=== PATIENT | male | born 1990 | race Caucasian/White ===

== ENCOUNTER 2019-10-07 14:51 | Inpatient (IN) ==
[2019-10-07 16:46] LABS: RBC 4.31 XMIL (4.7-6.1); WBC 4.81 X1000 (4.8-10.8)
[2019-10-07 16:47] LABS: HEMATOCRIT 37.5 % (42.0-52.0); HEMOGLOBIN 12.8 g/dL (14.0-18.0); MCH 29.7 PG (27-31); MCHC 34.1 g/dL (33-37); MPV 10.7 FL (7.4-10.4); PLT 173 X1000 (130-400)
[2019-10-07 16:48] LABS: BASO# 0.05 X1000 (0.0-0.2); EOS# 0.05 X1000 (0.0-0.7); LYMPH# 2.25 X1000 (1.2-3.4); LYMPH% 46.8 % (20.5-51.1); MONO# 0.74 X1000 (0.11-0.59); MONO% 15.4 % (1.7-9.3); NEUT# 1.72 X1000 (1.4-6.5); NEUT% 35.8 % (42.2-75.2)
[2019-10-07 17:20] LABS: URINE SOURCE CLEAN CATCH
[2019-10-07 17:30] LABS: BLOOD URINE NEGATIVE (NEGATIVE); COLOR YELLOW; GLUCOSE URINE NEGATIVE (NEGATIVE); KETONE URINE NEGATIVE (NEGATIVE); LEUKOCYTES URINE NEGATIVE (NEGATIVE); NITRITE URINE NEGATIVE (NEGATIVE); PH URINE 6.5; PROTEIN URINE TRACE mg/dL (NEGATIVE); SP GRAVITY URINE 1.028; TURBIDITY URINE HAZY (CLEAR); UROBILINOGEN URINE 8 mg/dL (NORMAL)
[2019-10-07 17:35] LABS: AGAP 16; ALB/GLOB RATIO 1.2; ALBUMIN 2.9 g/dL (3.5-5.0); ALKALINE PHOSPHATASE 257 U/L (32-122); AMYLASE 27 U/L (20-200); BUN 8 mg/dL (8-22); CALCIUM 8.6 mg/dL (8.8-10.2); CHLORIDE 97 mmol/L (98-107); CK PROFILE 83 U/L (24-204); COSMO 278; CREATININE 0.7 mg/dL (0.7-1.2); GLUCOSE 142 mg/dL (70-104); GOT 442 U/L (10-34); GPT 1422 U/L (10-44); LIPASE 22 U/L (13-60); POTASSIUM 3.5 mmol/L (3.5-5.1); SODIUM 139 mmol/L (136-145); TCO2 26 mmol/L (25-35); TOTAL BILIRUBIN 10.86 mg/dL (0.20-1.00); TOTAL PROTEIN 5.3 g/dL (6.3-8.3)
[2019-10-07 17:45] LABS: UR AMPHETAMINES QUAL PRESUMPTIVE POSITIVE (NONE DETECT); UR BARBITUATES QUAL NONE DETECTED (NONE DETECT); UR BENZODIAZEPIN QUAL NONE DETECTED (NONE DETECT); UR CANNABINOIDS QUAL PRESUMPTIVE POSITIVE (NONE DETECT); UR COCAINE QUAL NONE DETECTED (NONE DETECT); UR METHADONE QUAL NONE DETECTED (NONE DETECT); UR OPIATES QUAL NONE DETECTED (NONE DETECT); UR OXYCODONE QUAL NONE DETECTED (NONE DETECT); UR PCP QUAL NONE DETECTED (NONE DETECT)
[2019-10-07 17:49] LABS: UR EPITHELIAL CELLS <10 /HPF (<10); URINE BACTERIA NEGATIVE /HPF; URINE RBC <10 /HPF (<10); URINE WBC <10 /HPF (<10)
[2019-10-07 17:51] LABS: BILIRUBIN URINE LARGE (NEGATIVE)
[2019-10-07 17:53] LABS: URINE CASTS NONE SEEN; URINE YEAST NONE SEEN
[2019-10-07 17:56] LABS: URINE CRYSTALS NONE SEEN
--- NOTE | 2019-10-07 18:05 | PROVIDER DOCUMENTATION ---
This chart was entered by Andrew Stringer Scribe, acting as scribe for Magalis Almeida MD. HPI-General Adult - General Chief Complaint: General Adult Stated Complaint: General Adult Time Seen by Provider: 10/07/19 15:15 Source: patient Allergies/Adverse Reactions: Patient Allergies Allergy/AdvReac Type Severity Reaction Status Date / Time No Known Allergies Allergy Verified 10/07/19 15:12 Home Medications: Home Medication List Medication Instructions Recorded Confirmed Last Taken Type Fluoxetine HCl [Prozac] 80 mg PO DAILY 10/07/19 10/07/19 Unknown History - History of Present Illness -Gen Adult Nature of Presenting Problems: 28 y/o M presents to the ED with multiple complaints. Patient reports jaundiced skin and eyes for "a few days". Patient reports RUQ abdominal pain, body aches, generalized weaknes and headache. Patient denies nausea, vomiting, diarrhea and all other symptoms. Location of Pain/Injury: reports: abdomen Pain Radiation: reports: no radiation Quality of Pain: reports: aching Severity: reports: mild Onset/Duration: reports: 3 days ago Timing: reports: still present Context/Activities at Onset: reports: none Modifying Factors: improves with: nothing Associated Symptoms: reports: fatigue, headaches, muscle aches, weakness. denies: diarrhea, fever/chills, loss of appetite, nausea, shortness of breath, vomiting Similar Symptoms Previously?: No Recently seen or treated by another doctor?: No Review of Systems - Adult - REVIEW OF SYSTEMS - ADULT Constitutional: reports: fatique. denies: chills, fever Eyes: denies: blurred vision, double vision Ears, Nose, Mouth & Throat: reports: no symptoms reported Cardiovascular: denies: chest pain, palpitations Respiratory: reports: no symptoms reported Gastrointestinal: reports: abdominal pain. denies: diarrhea, nausea, vomiting Genitourinary: reports: other (dark colored urine). denies: flank pain Musculoskeletal: reports: no symptoms reported Integumentary: reports: no symptoms reported Neurological: reports: other (generalized weakness). denies: dizziness/vertigo, headache/migraines, numbness Psychiatric: reports: no symptoms reported Endocrine: reports: no symptoms reported Hematologic/Lymphatic: reports: no symptoms reported Allergic/Immunologic: reports: no symptoms reported All Other Systems: Reviewed and Negative Past History - Adult - PAST MEDICAL HISTORY-ADULT Review of Records: reports: Nursing Assessment Review, Medications Reviewed Major Childhood Illnesses: reports: denies history Cardiovascular: reports: denies history Respiratory: reports: denies history Gastrointestinal: reports: denies history Obstetrical/Gynecological: reports: denies history Genitourinary: reports: denies history Musculoskeletal: reports: denies history Neurological: reports: denies history Psychiatric: reports: denies history Endocrine/Immune: reports: denies history Other Conditions: reports: denies history - PRIOR SURGERIES/PROCEDURES Surgical/Procedure History: reports: appendectomy, tonsillectomy - PRIOR HOSPITALIZATIONS Prior Hospitalizations: reports: for other non-related - IMMUNIZATION STATUS Childhood Immunizations: See Nurse Assessment Flu Vaccine: See Nurse Assessment - FAMILY HISTORY Family History: reviewed, not pertinent - SOCIAL HISTORY Smoking: cigarettes, greater than 1 pack/day Provider spent 3-5 mins advising pt. on dangers of tobacco.: Discussed manners to quit use, and f/u contacts for add'l counseling. Substance Use: marijuana Physical Exam-General - PHYSICAL EXAM-ADULT Initial Vital Signs Reviewed: Yes - CONSTITUTIONAL General Appearance: alert, no apparent distress, other (jaundice looking) - EYES Eyes: PERRL/EOMI - HEAD, EARS, NOSE, MOUTH & THROAT HENMT: moist mucous membranes, normal ENT inspection - NECK Neck: full range of motion, normal inspection - RESPIRATORY Respiratory: lungs clear, normal breath sounds, no respiratory distress, no accessory muscle use - CARDIOVASCULAR Cardiovascular: normal peripheral pulses, regular rate, rhythm - GASTROINTESTINAL (ABDOMEN) Abdominal Exam: non tender, soft - MUSCULOSKELETAL Back Exam: normal inspection Extremity: normal range of motion, normal capillary refill - SKIN Integumentary: normal color, warm/dry - NEUROLOGIC Neurologic: pastry finisher II-XII nml as tested, grossly normal, no motor/sensory deficits - PSYCHIATRIC Psych/Mental Status: normal mood/affect, normal thought content, normal thought process, oriented x 3 Progress - PLAN OF CARE/RESULTS Progress/Plan/Lab Results: Vital Signs - 8 hr 10/07/19 14:54 Temperature 99 F Pulse Rate 89 Respiratory Rate 19 Blood Pressure 124/85 O2 Sat by Pulse Oximetry 100 Result Diagrams: 10/07/19 15:58 10/07/19 15:58 - CONSULTS/PCP/HOSPITALIST Notification #1 *Consult/PCP/Hospitalist*: Dori DECISION SCIENCE ANALYST, [facility] Time Discussed: 18:05 Consult Disposition: Admit (Admit to Dr Finn) #2 Consult: Dr Molina Time Discussed: 19:47 Consult Disposition: Admit Departure - Departure Date of Disposition Decision: 10/07/19 Time of Disposition Decision: 18:04 DIAGNOSIS: Acute hepatitis, Hyperbilirubinemia Disposition: ADMITTED INPATIENT 09 Certified Medical Emergency: Emergent Condition: Serious Referrals and Follow-Ups: Roberto Carlos Salas [Primary Care Provider] - Discharge Education: Steps to Quit Smoking - Critical Care Note This patient required my direct & personal management of CC.: No Attestation - Physician/ MILE Attestation Patient care was provided by Advanced Practice Provider:: No The physician spent face to face time with patient:: Yes Advanced Practice Provider documentation review:: Supervising physician onsite and consulted in the evaluation and care of this patient. The physician did have a face to face encounter with the patient. This chart was documented by the indicated scribe, (Andrew Stringer Scribiron) and accurately reflects the services I performed and decisions made by , Magalis Almeida MD, as attested by the provider's signature.
[2019-10-07] MEDS ORDERED: MORPHINE IV ONE (19:22)
[2019-10-07] MEDS ORDERED: ZOFRAN IV ONE (19:22)
--- NOTE | 2019-10-07 19:40 | Diag Imaging Result Doc PS360 ---
EXAM: CT ABDOMEN/PELVIS W/O CONTRAST INDICATION: hepatitis TECHNIQUE: This exam was performed using automated exposure control, adjustment of mA or kV according to patient size, and/or use of iterative reconstruction technique. COMPARISON: 04/21/2019 FINDINGS: The gallbladder is contracted and is unremarkable, otherwise. The liver appears normal as imaged with unenhanced CT. The spleen, pancreas, and adrenal glands are unremarkable. There are a few nonobstructing intrarenal stones bilaterally. No ureteral stones are identified and there is no hydronephrosis. There are several phleboliths in the pelvis. The urinary bladder is unremarkable. There are metallic clips adjacent to the cecum suggesting likely prior appendectomy. There is no pericecal inflammatory change. No definite bowel wall thickening or bowel obstruction is identified. The remainder of the GI tract is grossly unremarkable. No focal inflammatory changes, free abdominal gas, or free fluid is appreciated. IMPRESSION: 1.Nonobstructive nephrolithiasis. 2.Unremarkable liver by unenhanced CT. Electronically signed by Edmond Hale 10/07/2019 7:38 PM
[2019-10-07] MEDS ORDERED: OXY IR PO ONE (21:40)
[2019-10-07 21:53] LABS: INR 0.85; PROTIME 11.7 Seconds (11.0-16.0)
[2019-10-07 22:04] LABS: GGT 318 U/L (11-50); MAGNESIUM 2.1 mg/dL (1.5-2.7)
[2019-10-07 22:23] LABS: SALICYLATES < 3.00 mg/dL (3-10)
[2019-10-07] MEDS ORDERED: NS 1,000 ML IV SCH (23:30)
--- NOTE | 2019-10-08 00:47 | EKG Report ---
Test Performed on : 10/07/2019 9:57:29 PM Test Reason : RUQ Pain Blood Pressure : / mmHG Vent. Rate : 057 BPM Atrial Rate : 057 BPM P-R Int : 160 ms QRS Dur : 084 ms QT Int : 440 ms P-R-T Axes : 064 046 040 degrees QTc Int : 428 ms Sinus bradycardia. Otherwise normal ECG When compared with ECG of 16-MAR-2019 23:03, No significant change was found Unconfirmed Result
[2019-10-08] MEDS: NICODERM PATCH TD PRN ×2 (00:53→20:51)
[2019-10-08] MEDS ORDERED: XANAX PO ONE (01:08)
[2019-10-08] MEDS: OXY IR PO PRN ×4 (03:21→21:08)
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
[2019-10-08 07:23] LABS: BASO# 0.02 X1000 (0.0-0.2); BASO% 0.4 % (0.0-0.8); EOS# 0.09 X1000 (0.0-0.7); EOS% 1.9 % (0.0-10.0); HEMATOCRIT 36.1 % (42.0-52.0); HEMOGLOBIN 12.5 g/dL (14.0-18.0); LYMPH# 2.61 X1000 (1.2-3.4); LYMPH% 54.6 % (20.5-51.1); MCH 30.4 PG (27-31); MCHC 34.6 g/dL (33-37); MCV 87.8 FL (81-99); MONO# 0.74 X1000 (0.11-0.59); MONO% 15.5 % (1.7-9.3); MPV 11.8 FL (7.4-10.4); NEUT# 1.32 X1000 (1.4-6.5); NEUT% 27.6 % (42.2-75.2); PLT 192 X1000 (130-400); RBC 4.11 XMIL (4.7-6.1); RDW 15.3 % (11.5-14.5); WBC 4.78 X1000 (4.8-10.8)
[2019-10-08] MEDS: ZOFRAN IV PRN ×2 (07:30→12:44)
--- NOTE | 2019-10-08 07:40 | Diag Imaging Result Doc PS360 ---
EXAM: CHEST-2 VIEWS 10/07/2019 HISTORY: Exertional Dyspnea, cough TECHNIQUE: PA and lateral chest COMMENT: There is no evidence of acute cardiac or pulmonary disease. Compared to 04/21/2019 there has been no significant change. IMPRESSION: No evidence of acute disease. Electronically signed by Schuyler Barker 10/08/2019 7:38 AM
[2019-10-08 08:12] LABS: CHLORIDE 97 mmol/L (98-107); FERRITIN 424 ng/mL (30-400); POTASSIUM 3.3 mmol/L (3.5-5.1); SODIUM 137 mmol/L (136-145); TCO2 32 mmol/L (25-35)
[2019-10-08 08:13] LABS: AGAP 8; ALB/GLOB RATIO 1.1; ALKALINE PHOSPHATASE 252 U/L (32-122); BUN 6 mg/dL (8-22); CALCIUM 8.9 mg/dL (8.8-10.2); COSMO 271; CREATININE 0.7 mg/dL (0.7-1.2); GLUCOSE 88 mg/dL (70-104); GOT 314 U/L (10-34); GPT 1199 U/L (10-44); TOTAL BILIRUBIN 8.91 mg/dL (0.20-1.00); TOTAL PROTEIN 5.8 g/dL (6.3-8.3)
[2019-10-08 09:41] LABS: IRON SATURATION 44 %; TIBC 291 ug/dL; TOTAL IRON 127 ug/dL (53-167); UNBOUND IRON 164 ug/dL (112-346)
--- NOTE | 2019-10-08 09:50 | Diag Imaging Result Doc PS360 ---
EXAM: US ABDOMEN-COMPLETE INDICATION: Transaminitis,Abd. Pain COMPARISON: 04/21/2019 FINDINGS: The gallbladder is contracted. The gallbladder wall is somewhat thickened measuring up to 3.8 mm. This is probably due to the contraction. No gallstones are identified. The common bile duct is normal in diameter. The liver is grossly unremarkable. Portal venous flow is hepatopetal. The visualized pancreas is unremarkable. The aorta and IVC are grossly unremarkable. The spleen is unremarkable. There are a couple of subcentimeter intrarenal stones associated with both kidneys. The kidneys are unremarkable, otherwise. There is no evidence of hydronephrosis. IMPRESSION: 1.Contracted gallbladder with a mildly thickened wall. This is probably, at least in part, due to the contraction. Please correlate clinically. 2.Nonobstructive nephrolithiasis. Electronically signed by Edmond Hale 10/08/2019 9:47 AM
[2019-10-08] MEDS ORDERED: FLU VACCINE IM ONE (10:35)
--- NOTE | 2019-10-08 14:09 | PROGRESS NOTE ---
DATE: 10/08/2019 SUBJECTIVE: Mr. Ulloa was admitted yesterday. He is a patient of Dr. Salas. A 28-year-old, past medical history of depression, anxiety. States the past 3 months he has been having intermittent right upper quadrant abdominal pain. Reports that nothing really predisposes the pain coming and it just comes about any time. Curling up in a position and pain medicines improve it. He states that it is a stabbing pain in nature, like someone had a toolmaker grade three around that area. Denies any nausea or vomiting. Denies any constipation or diarrhea, reporting that he has been having some rectal bleeding. Reports that it is bright red blood, has been increased in amount. Does have a history of hemorrhoids and he says that there is more than just a little bit of blood. It is clots and it is in the toilet he sees as well. States history of this in the past, was diagnosed with hemorrhoids. Tends to see the rectal bleeding come and that he had been stressed out and it usually comes with stress. He had a colonoscopy though he does not remember when this was performed, was performed somewhere in [place]. He was told that everything looked okay. He has had increased fatigue and exertional dyspnea. Reports a headache. He denies any dysuria. He reports some numbness in his fingers in the right hand at times that has been going on for some time and he might have been told he might have carpal tunnel. He feels like his hands stay cold a lot. In the emergency room, he has been in the emergency room quite a few times with the same type of pain. This goes back to 2013. He has had previous CT of the abdomen and pelvis as well as abdominal ultrasounds, though these all appear to be negative except for the CT today did show some nonobstructing infrarenal stones bilaterally. Patient denies any current alcohol use. States that he has had approximately 6 beers over the last 6 months. He has not had any previous reports of heavy alcohol use. He reports a lot of stressors in his life right now. He is working out of town and his father currently having to keep his kids secondary to this. He also is either still but or he is but does have the mother of his children for which he explained causes a lot of stress in the relationship. He does have a history of depression and anxiety. Evaluation in the emergency room, he seemed to have some jaundice noticed in his sclerae and slightly jaundiced skin. Serum ethanol level was 2. Performed a CT of the abdomen without contrast, showed unremarkable liver by unenhanced CT. There were a few nonobstructing intrarenal stones bilaterally. Gallbladder was noted to be contracted and was unremarkable. Spleen, pancreas, and adrenal glands were unremarkable. PAST MEDICAL HISTORY: 1. Depression. 2. Anxiety. 3. Hemorrhoids. 4. Rectal bleeding. 5. Nicotine dependence. 6. Chronic back pain. 7. Degenerative disk disease. 8. Reports chronic back pain due to herniated disk around S1-S2 and herniated disk in L1 to L5 area. PAST SURGICAL HISTORY: 1. Appendectomy. 2. Tonsillectomy. 3. Colonoscopy. ADMISSION DIAGNOSES: 1. Abdominal pain, transaminitis, and was admitted for further evaluation. CT scan did not show significant or any specific liver pathology. 2. Reported rectal bleeding which has been intermittent. He has been told he had hemorrhoids. Does report he has had a colonoscopy in the recent past. We are going to get GI to evaluate. 3. Nicotine dependence and counseled on the importance of smoking cessation. 4. Depression and anxiety. He is on Prozac daily. He is having a lot of stressors right now. 5. He is on deep venous thrombosis prophylaxis with sequential compression hose. HIS ORDERS REVIEWED: He is on a nicotine patch 21 mg a day, Oxy IR 5 mg q.4 hours p.r.n., Xanax 0.5 mg p.o. I guess was given a dose when he came in, and he does take Prozac at home and so we will continue that. cc: Artemio Kee MD
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
[2019-10-08 14:50] LABS: HEPATITIS PROFILE ACUTE SEE COMMENTS
[2019-10-08] MEDS: PROZAC PO SCH (16:09)
[2019-10-09] MEDS ORDERED: NS 1,000 ML IV SCH (01:30)
[2019-10-09] MEDS: OXY IR PO PRN ×4 (04:04→21:46)
[2019-10-09] MEDS ORDERED: PNEUMOVAX 23 IM ONE (05:58)
[2019-10-09] MEDS: PROZAC PO SCH (08:23)
[2019-10-09] MEDS: NICODERM PATCH TD PRN (08:27)
--- NOTE | 2019-10-09 08:46 | PROGRESS NOTE ---
DATE: 10/09/2019 SUBJECTIVE: Mr. Ulloa was sleeping and really was easy to arouse, but he really did not want to be bothered this morning, went back to sleep. His IV came out, and we are not giving him anything in the IV at this time. I think we will hold it out for now. OBJECTIVE: Vital Signs: Temp 98.4 degrees, pulse 57, respirations 16, blood pressure 102/65. HEENT: Pupils are equal and round. Neck: No distended neck veins. Lungs: Clear anterolateral. Cardiovascular: Regular rhythm and rate without murmur or S3. Abdomen: Soft. Skin: Warm and dry. Urine output was almost 700 mL. LABORATORY DATA: White count 4780, hematocrit 36, platelet count 192,000. AST was 314, ALT 1199. Direct bilirubin was 8.0; it is up to 8.9. ASSESSMENT AND PLAN: 1. Elevated liver function tests. 2. Abdominal pain, which seems to have resolved. 3. Tobacco abuse. 4. Drug abuse. 5. Depression. 6. Anxiety. 7. Rectal bleeding. 8. History of hemorrhoids. Gastroenterology is following. He is on antiemetics. They are having trouble getting an IV. I will hold off on an IV at this point, and see. The patient's stool for occult blood was negative. The patient's urine culture showed no growth. Transaminases, bilirubin slightly up, and his ALT and AST are a little bit down. cc: Artemio Kee MD
[2019-10-09] MEDS ORDERED: PROZAC PO SCH (09:00)
--- NOTE | 2019-10-09 12:40 | GASTROENTEROLOGY PROGRESS NOTE ---
DATE: 10/09/2019 SUBJECTIVE: Mr. Ulloa is a 28-year-old male, resting in bed. He was complaining that he was feeling depressed because he was in the hospital and that the holidays are coming and he wanted to be with his kids. He has denied any nausea, vomiting, or abdominal pain. He also has denied any bowel movements today. OBJECTIVE: Vital Signs: Temperature 98.4, pulse is 57, respirations 16, blood pressure 102/65, oxygen saturation 99% on room air. The patient's weight is 160 pounds. BMI is 23.0 kg/m2. General: He is alert, oriented x3. HEENT: Pale conjunctivae. Scleral icterus. PERRL. Neck: Supple. Lungs: Clear to auscultation. Cardiovascular: The patient is bradycardic. Abdomen: Soft, nontender, nondistended. Active bowel sounds heard in all 4 quadrants. Extremities: No clubbing, no cyanosis, no edema. Pedal pulses 2+ present bilaterally. Neurologic: Alert and oriented x3. LABORATORY DATA: From 10/08/2019, WBC 4.78, RBC 4.11, hemoglobin 12.5, hematocrit 36.1, platelet count is 192,000. Sodium 137, potassium 3.3, chloride 97, carbon dioxide 32, anion gap 8, BUN 6, creatinine 0.7, glucose 88, calcium 8.9, total bilirubin 8.91, AST is 314, ALT is 1199, and alkaline phosphatase is 252. The patient's hepatitis profile showed that his hepatitis B surface antigen was nonreactive. Hepatitis B core antigen was nonreactive. Hepatitis C antibody was nonreactive, but hepatitis A viral antibody was reactive. IMPRESSION AND PLAN: 1. Elevated liver enzymes 2. Abdominal pain. 3. Tobacco abuse. 4. Drug abuse. 5. Depression. 6. Anxiety. 7. Rectal bleeding. 8. History of hemorrhoids. 9. Acute Hepatitis A PLAN: Mr. Ulloa is a 28-year-old male with a history of depression and anxiety. GI has been following him for his abdominal pain. The patient is currently on antiemetic, Zofran, for his nausea and vomiting. His occult blood was negative. He has denied noticing any bleeding. Patient is receiving Prozac for his depression and anxiety. Patient's Hepatitis A IgM is reactive, we will continue to provide conservative care to the patient. This plan was discussed with Dr. Sy. Please call us for any further questions or concerns. Dictated by JACK Tran for Abimael Sy MD cc: Abimael Sy MD I have seen and examined the patient myself and I agree with the above plan of care. I have discussed the above with the patient and all questions were answered. Please call us with any further questions. MTDVazquez
[2019-10-09] MEDS ORDERED: IMITREX SUBQ SUBQ ONE (13:00)
[2019-10-10] MEDS: OXY IR PO PRN ×5 (02:28→22:13)
[2019-10-10] MEDS ORDERED: IMITREX SUBQ SUBQ ONE (08:05)
[2019-10-10] MEDS: PROZAC PO SCH (08:55)
--- NOTE | 2019-10-10 11:07 | GASTROENTEROLOGY PROGRESS NOTE ---
DATE: 10/10/2019 SUBJECTIVE: Mr. Ulloa is a 28-year-old male, resting in bed, complaining of having headaches. He has denied any nausea, vomiting, or abdominal pain. OBJECTIVE: Vital Signs: Temperature 98 degrees, pulse 60, respirations 16, blood pressure 112/78, oxygen saturation 97% on room air. The patient's weight is 160 pounds. BMI is 23.0 kg/m2. General: He is alert, oriented x3, and in no acute distress. HEENT: Pale conjunctivae. Sclerae icterus. PERRL. Neck: Supple. Lungs: Clear to auscultation. Cardiovascular: Regular rate and rhythm. Abdomen: Soft, nontender, nondistended. Active bowel sounds heard in all 4 quadrants. Extremities: No clubbing, no cyanosis, no edema. Pedal pulses 2+ present bilaterally. Neurologic: Alert oriented x3. LABORATORY: From 10/08, WBC is 4.78, RBCs 4.11, hemoglobin 12.5, hematocrit 36.1, platelet count is 192,000. Sodium 137, potassium 3.3, chloride 97, carbon dioxide 32, anion gap 8, BUN 6, creatinine 0.7, glucose 98, calcium 8.9, total bilirubin 8.91, AST 314, ALT 1199, alkaline phos 252, albumin is 3.0 IMPRESSION AND PLAN: 1. Elevated liver enzymes. 2. Abdominal pain. 3. Tobacco abuse. 4. Drug abuse. 5. Depression. 6. Anxiety. 7. Rectal bleeding. 8. History of hemorrhoids. 9. Acute hepatitis A. PLAN: Mr. Ulloa is a 28-year-old male with a history of depression and anxiety. GI has been following him for his abdominal pain and his elevated liver enzymes. The patient is currently receiving antiemetic, Zofran for his nausea and vomiting. The patient did have an occult blood that was negative and patient also has denied noticing any further bleeding. The patient is on Prozac for his anxiety and depression. The patient's hepatitis A IgM is reactive. We have ordered his labs for liver enzymes. We will continue to provide conservative care to the patient. Patient has been counselled on smoking cessation and to give up consuming drugs.Patient acknowledges understanding of the instructions. This plan was discussed with Dr. March. Please call us for any further questions or concerns. Dictated by JACK Tran for Darryl March MD Physician Attestation I have seen and examined the patient. I have discussed and reviewed the note by Erika SANTIAGO and agree with findings and plan as documented. ALYSON
[2019-10-10 11:56] LABS: ALB/GLOB RATIO 0.9; ALBUMIN 2.9 g/dL (3.5-5.0); DIRECT BILIRUBIN 2.7 mg/dL (0.00-0.20); TOTAL BILIRUBIN 4.33 mg/dL (0.20-1.00); TOTAL PROTEIN 6.1 g/dL (6.3-8.3)
[2019-10-10] MEDS: NICODERM PATCH TD PRN (13:15)
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
[2019-10-11] MEDS: OXY IR PO PRN (02:30)
[2019-10-11 07:51] VITALS: BP 96/62
[2019-10-11] MEDS ORDERED: IMITREX SUBQ SUBQ ONE (09:11)
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
[2019-10-11] MEDS: PROZAC PO SCH (10:32)
== END 2019-10-11 11:30 | disposition home or self-care (01) | DRG 392 ==
LOC: ED 14:51 → SUATTDRO 22:42 → 4N 22:42
PROVIDERS: ATTEND Emergency Medicine